=== PATIENT | female | born 1990 | race Caucasian/White ===

== ENCOUNTER 2020-10-11 12:51 | Outpatient (CLI) | payer OTHER | END 2020-10-11 20:07 | disposition home or self-care (01) | LOC: SLB 12:51 | PROVIDERS: ATTEND Specialist | DX: Z34.90 Encounter for supervision of normal pregnancy, unspecified, unspecified trimester (principal); Z3A.00 Weeks of gestation of pregnancy not specified | CPT/HCPCS: 36415; 84144; 84702 ==

== ENCOUNTER 2020-10-13 10:46 | Outpatient (CLI) | payer OTHER | END 2020-10-13 20:19 | disposition home or self-care (01) | LOC: SLB 10:46 | PROVIDERS: ATTEND Specialist | DX: Z34.90 Encounter for supervision of normal pregnancy, unspecified, unspecified trimester (principal); Z3A.00 Weeks of gestation of pregnancy not specified | CPT/HCPCS: 36415; 84144; 84702 ==

== ENCOUNTER 2020-10-17 11:03 | Day surgery (SDC) | payer OTHER, SELFPAY ==
[~2020-10-17] VITALS: Ht 172.7 cm; Wt 79.4 kg
[2020-10-17 12:38] LABS: BASOPHILS % (AUTO) 0.6 % (0.0-2.0); EOSINOPHILS # (AUTO) 0.1 K/uL (0.0-0.4); EOSINOPHILS % (AUTO) 2.6 % (0.0-4.0); HEMATOCRIT 32.1 % (36-48); HEMOGLOBIN 10.1 g/dL (12.0-16.0); LYMPHOCYTES # (AUTO) 1.6 K/uL (1.0-5.5); LYMPHOCYTES % (AUTO) 33.2 % (20.5-51.5); MEAN CORPUSCULAR HEMOGLOBIN 24 pg (27-31); MEAN CORPUSCULAR HGB CONC 32 % (32-36); MEAN CORPUSCULAR VOLUME 77 fL (79.0-98.0); MONOCYTES # (AUTO) 0.3 K/uL (0.0-1.0); MONOCYTES % (AUTO) 6.7 % (1.7-9.3); NEUTROPHILS # (AUTO) 2.8 K/uL (1.8-7.7); NEUTROPHILS % (AUTO) 56.9 % (40.0-70.0); PLATELET COUNT (AUTO) 188 K/uL (130-430); RED BLOOD CELL COUNT(AUTO) 4.16 MIL/uL (4.2-6.2); RED CELL DISTRIBUTION WIDTH 16.7 % (9.0-15.0); WHITE BLOOD COUNT (AUTO) 4.9 K/uL (4.8-10.8)
[2020-10-17] MEDS ORDERED: HYDROmorphone 2 MG/ML VIAL IVP PRN ×2 (13:15)
[2020-10-17] MEDS ORDERED: LR 1,000 ML IV SCH (13:15)
[2020-10-17] MEDS ORDERED: HYDROmorphone 1 MG/ML INJ. CARTRIDGE IVP PRN (13:15)
[2020-10-17] MEDS ORDERED: MEPERIDINE HCL/PF 25 MG/ML DISP.SYRIN IVP PRN (13:15)
[2020-10-17] MEDS ORDERED: PROPOFOL 200MG/ 20ML VIAL (DIPRIVAN) IV ONE (13:18)
[2020-10-17] MEDS ORDERED: WATER FOR IRRIGATION,STERILE 1,000 ML IRRIG.SOLN IR ONE (13:18)
[2020-10-17] MEDS ORDERED: SEVOFLURANE 15 MIN GAS INH ONE (13:18)
[2020-10-17] MEDS ORDERED: CEFAZOLIN 2 GM IVPB PREMIX 50 ML IV ONE (13:18)
[2020-10-17] MEDS ORDERED: DEXAMETHASONE SOD PHOSPHATE 4 MG/ML VIAL IVP ONE (13:18)
[2020-10-17] MEDS ORDERED: fentaNYL CITRATE/PF 100 MCG/2 ML AMP IVP ONE (13:18)
[2020-10-17] MEDS ORDERED: ONDANSETRON HCL 4 MG/2 ML VIAL IVP ONE (13:18)
[2020-10-17] MEDS ORDERED: NS 1000 ML IV.SOLN IV ONE (13:18)
[2020-10-17] MEDS ORDERED: LR 1,000 ML IV.SOLN IV ONE (13:18)
[2020-10-17] MEDS ORDERED: OXYTOCIN 10 UNIT/ML VIAL IV ONE (13:18)
[2020-10-17] MEDS ORDERED: METOCLOPRAMIDE HCL 10 MG/2 ML VIAL IVP ONE (13:18)
[2020-10-17] MEDS ORDERED: MIDAZOLAM HCL 5 MG/5 ML VIAL IVP ONE (13:18)
[2020-10-17] MEDS: HYDROmorphone 2 MG/ML VIAL ONE ×2 (14:20→14:25)
[2020-10-17] MEDS ORDERED: HYDROcodone/ACETAMIN 5-325 MG TAB (NORCO/ VICODIN) PO PRN (14:30)
[2020-10-17] MEDS ORDERED: OXYCODONE/ACETAMINOPHEN 5-325 TABLET PO PRN ×2 (14:30)
[2020-10-17] MEDS ORDERED: ONDANSETRON HCL 4 MG/2 ML VIAL IVP PRN (14:30)
[2020-10-17 15:20] VITALS: BP_SYST 118
[2020-10-17] MEDS ORDERED: OXYCODONE/ACETAMINOPHEN 5-325 TABLET ONE (15:36)
== END 2020-10-17 16:20 | disposition home or self-care (01) ==
LOC: SDS 11:03
PROVIDERS: ATTEND Specialist
DX: O03.4 Incomplete spontaneous abortion without complication (principal)
CPT/HCPCS: 36415; 59812; 85025; 86886; 86900; 86901; 87426; 88305; J1170; J0690; J1100; J2250; J2405; J2590; J2704; J2765; J3010; J7030; J7120

== ENCOUNTER 2021-07-02 17:38 | Observation (INO) | payer OTHER, SELFPAY ==
[~2021-07-02] VITALS: Ht 172.7 cm; Wt 86.6 kg
== END 2021-07-02 19:16 | disposition home or self-care (01) ==
LOC: SPU 17:38
PROVIDERS: ADMIT Specialist; ATTEND Specialist
DX: O26.892 Other specified pregnancy related conditions, second trimester (principal); R10.9 Unspecified abdominal pain; Z3A.27 27 weeks gestation of pregnancy
CPT/HCPCS: G0378; G0379

== ENCOUNTER 2021-08-05 19:09 | Observation (INO) | payer OTHER ==
[~2021-08-05] VITALS: Ht 172.7 cm; Wt 89.4 kg
== END 2021-08-05 20:30 | disposition home or self-care (01) ==
LOC: SPU 19:09
PROVIDERS: ADMIT Specialist; ATTEND Specialist
DX: O26.893 Other specified pregnancy related conditions, third trimester (principal); R10.2 Pelvic and perineal pain; O36.8130 Decreased fetal movements, third trimester, not applicable or unspecified; Z3A.32 32 weeks gestation of pregnancy
CPT/HCPCS: G0378; G0379; 81002

== ENCOUNTER 2021-09-15 11:04 | Observation (INO) | payer OTHER ==
[~2021-09-15] VITALS: Ht 172.7 cm; Wt 91.6 kg
== END 2021-09-15 14:45 | disposition home or self-care (01) ==
LOC: SPU 11:04
PROVIDERS: ADMIT Specialist; ATTEND Specialist
DX: O36.8130 Decreased fetal movements, third trimester, not applicable or unspecified (principal); O62.9 Abnormality of forces of labor, unspecified; Z3A.38 38 weeks gestation of pregnancy
CPT/HCPCS: 59025; 76819; 81002; G0378; G0379

== ENCOUNTER 2021-09-17 10:54 | Inpatient (IN) | payer OTHER ==
[~2021-09-17] VITALS: Ht 172.7 cm; Wt 92.1 kg
[2021-09-17] MEDS ORDERED: LR 500 ML IV ONE ×2 (11:45→13:15)
[2021-09-17] MEDS ORDERED: OXYTOCIN/0.9 % SODIUM CHLORIDE 1,000 ML IV SCH ×2 (11:45→19:15)
[2021-09-17] MEDS ORDERED: NALBUPHINE HCL 10 MG/ML AMP IM PRN (11:45)
[2021-09-17] MEDS ORDERED: NALBUPHINE HCL 10 MG/ML AMP IVP PRN (11:45)
[2021-09-17] MEDS ORDERED: TERBUTALINE SULFATE 1 MG/ML VIAL SUBCUT ONE (11:45)
[2021-09-17] MEDS ORDERED: LR 1,000 ML IV ONE (11:45)
[2021-09-17] MEDS: LR 1,000 ML IV SCH ×3 (11:46→20:23)
[2021-09-17 12:16] LABS: BASOPHILS % (AUTO) 0.5 % (0.0-2.0); EOSINOPHILS % (AUTO) 0.6 % (0.0-4.0); HEMATOCRIT 34.1 % (36-48); HEMOGLOBIN 11.8 g/dL (12.0-16.0); LYMPHOCYTES # (AUTO) 1.5 K/uL (1.0-5.5); LYMPHOCYTES % (AUTO) 19.6 % (20.5-51.5); MEAN CORPUSCULAR HEMOGLOBIN 31 pg (27-31); MEAN CORPUSCULAR HGB CONC 34 % (32-36); MEAN CORPUSCULAR VOLUME 90 fL (79.0-98.0); MONOCYTES # (AUTO) 0.3 K/uL (0.0-1.0); MONOCYTES % (AUTO) 4.1 % (1.7-9.3); NEUTROPHILS # (AUTO) 5.6 K/uL (1.8-7.7); NEUTROPHILS % (AUTO) 75.2 % (40.0-70.0); PLATELET COUNT (AUTO) 111 K/uL (130-430); RED CELL DISTRIBUTION WIDTH 14.1 % (9.0-15.0); WHITE BLOOD COUNT (AUTO) 7.5 K/uL (4.8-10.8)
[2021-09-17] MEDS ORDERED: FENT2mCg/mL-ROPIVA0.2%/NS EPID 200 ML EP SCH (13:15)
[2021-09-17] MEDS ORDERED: ePHEDrine sulfate 50 MG/ML VIAL IVP PRN (13:15)
[2021-09-17] MEDS ORDERED: ROPIVACAINE HCL/PF 0.2% 200 ML ONE (13:19)
[2021-09-17] MEDS ORDERED: fentaNYL CITRATE/PF 100 MCG/2 ML AMP ONE (13:19)
[2021-09-17] MEDS ORDERED: LIDOCAINE PF 1% 30ML(POUR BTL) INJ ONE (15:32)
[2021-09-17] MEDS ORDERED: LIGHT MINERAL OIL 10 ML VIAL MC ONE (15:32)
[2021-09-17] MEDS ORDERED: NALOXONE HCL 0.4 MG/ML AMP (NARCAN) ONE (15:33)
[2021-09-17 17:47] VITALS: BP_SYST 96
[2021-09-17] MEDS ORDERED: NALOXONE HCL 0.4 MG/ML AMP (NARCAN) IVP PRN (19:15)
[2021-09-17] MEDS ORDERED: HYDROCORTISONE 0.5% CREAM 28.4 GM CREAM.GM. TP PRN (19:15)
[2021-09-17] MEDS ORDERED: DIPH-TET-PERTUS Vaccine 0.5 ML VIAL (ADACEL) I.M. PRN (19:15)
[2021-09-17] MEDS ORDERED: WITCH HAZEL LEAF 1 MED.PAD MED.PAD TP PRN (19:15)
[2021-09-17] MEDS ORDERED: METHYLERGONOVINE MALEATE 0.2 MG TABLET PO PRN (19:15)
[2021-09-17] MEDS ORDERED: DERMOPLAST SPRAY TP PRN (19:15)
[2021-09-17] MEDS ORDERED: OXYTOCIN/0.9 % SODIUM CHLORIDE 1,000 ML IV ONE (19:15)
[2021-09-17] MEDS ORDERED: OXYCODONE/ACETAMINOPHEN 5-325 TABLET PO PRN (19:15)
[2021-09-17] MEDS ORDERED: RHO(D) IMMUNE GLOBULIN/MALTOSE 1500 UNITS/1.3 ML (WINHRO) IM PRN (19:15)
[2021-09-17] MEDS ORDERED: MEASLES,MUMPS&RUBELLA VACC/PF 12500 UNIT/0.5 ML VIAL SUBQ PRN (19:15)
[2021-09-17] MEDS ORDERED: LANOLIN 7 GM OINT. TP PRN (19:15)
[2021-09-17] MEDS ORDERED: HYDROcodone/ACETAMIN 5-325 MG TAB (NORCO/ VICODIN) PO PRN (19:15)
[2021-09-17] MEDS ORDERED: ANUSOL 1 EA SUPP.RECT (PREPARATION H) RC PRN (19:15)
[2021-09-17] MEDS ORDERED: IBUPROFEN 600 MG TABLET ONE (19:37)
[2021-09-17] MEDS ORDERED: IBUPROFEN 600 MG TABLET PO ONE (19:38)
[2021-09-17] MEDS ORDERED: TEMAZEPAM 15 MG CAPSULE PO PRN (21:00)
[2021-09-17] MEDS ORDERED: SENNOSIDES/DOCUSATE SODIUM 1 TAB TABLET(SENOKOT-S) PO SCH (21:00)
[2021-09-17] MEDS: IBUPROFEN 600 MG TABLET PO SCH (23:55)
[2021-09-18] MEDS: IBUPROFEN 600 MG TABLET PO SCH ×2 (05:13→11:49)
[2021-09-18 06:29] LABS: BASOPHILS % (AUTO) 0.2 % (0.0-2.0); EOSINOPHILS # (AUTO) 0.1 K/uL (0.0-0.4); EOSINOPHILS % (AUTO) 0.5 % (0.0-4.0); HEMATOCRIT 34.3 % (36-48); LYMPHOCYTES # (AUTO) 1.8 K/uL (1.0-5.5); LYMPHOCYTES % (AUTO) 15.5 % (20.5-51.5); MEAN CORPUSCULAR HEMOGLOBIN 31 pg (27-31); MEAN CORPUSCULAR HGB CONC 35 % (32-36); MEAN CORPUSCULAR VOLUME 89 fL (79.0-98.0); MONOCYTES # (AUTO) 0.7 K/uL (0.0-1.0); MONOCYTES % (AUTO) 5.7 % (1.7-9.3); NEUTROPHILS # (AUTO) 9.1 K/uL (1.8-7.7); NEUTROPHILS % (AUTO) 78.1 % (40.0-70.0); PLATELET COUNT (AUTO) 116 K/uL (130-430); RED BLOOD CELL COUNT(AUTO) 3.86 MIL/uL (4.2-6.2); RED CELL DISTRIBUTION WIDTH 14.1 % (9.0-15.0); WHITE BLOOD COUNT (AUTO) 11.6 K/uL (4.8-10.8)
[2021-09-18] MEDS: OXYCODONE/ACETAMINOPHEN 5-325 TABLET PO PRN ×2 (06:55→17:35)
[2021-09-18] MEDS ORDERED: DOCUSATE SODIUM 100 MG CAPSULE PO SCH (09:00)
[2021-09-18] MEDS ORDERED: OXYC-128 PO (19:03)
== END 2021-09-18 21:22 | disposition home or self-care (01) | DRG 807 ==
LOC: SPU 10:54
PROVIDERS: ADMIT Specialist; ATTEND Specialist
PROC: 10E0XZZ Delivery of Products of Conception, External Approach (ICD-10-PCS; principal; 2021-09-17)
PROC: 0UQMXZZ Repair Vulva, External Approach (ICD-10-PCS; 2021-09-17)
PROC: 3E0R3BZ Introduction of Anesthetic Agent into Spinal Canal, Percutaneous Approach (ICD-10-PCS; 2021-09-17)
PROC: 00HU33Z Insertion of Infusion Device into Spinal Canal, Percutaneous Approach (ICD-10-PCS; 2021-09-17)
DX: O36.5930 Maternal care for other known or suspected poor fetal growth, third trimester, not applicable or unspecified (principal); Z37.0 Single live birth; Z3A.38 38 weeks gestation of pregnancy; O71.82 Other specified trauma to perineum and vulva; Z20.822 Contact with and (suspected) exposure to COVID-19
CPT/HCPCS: 36415; 81002; 85025; 86592; 86886; 86900; 86901; 94760; J2001; J2310; J2590; J3010